=== PATIENT | male | born 1960 | race American Indian/Alaskan Native ===

== ENCOUNTER 2024-09-24 03:55 | Day surgery (SDC) | payer OTHER ==
[2024-09-24] MEDS ORDERED: Miconazole Nitrate 2% 85 GM PWD ONE (09:33)
== END 2024-09-24 23:31 | disposition home or self-care (01) ==
LOC: WOUND 03:55
DX: E11.621 Type 2 diabetes mellitus with foot ulcer (principal); L97.515 Non-pressure chronic ulcer of other part of right foot with muscle involvement without evidence of necrosis; L89.894 Pressure ulcer of other site, stage 4; E11.40 Type 2 diabetes mellitus with diabetic neuropathy, unspecified; I10 Essential (primary) hypertension
CPT/HCPCS: A9270; G0463

== ENCOUNTER 2024-10-05 02:29 | Day surgery (SDC) | payer OTHER | END 2024-10-05 23:22 | disposition home or self-care (01) | LOC: WOUND 02:29 | DX: E11.621 Type 2 diabetes mellitus with foot ulcer (principal); L97.513 Non-pressure chronic ulcer of other part of right foot with necrosis of muscle; L89.892 Pressure ulcer of other site, stage 2; L89.94 Pressure ulcer of unspecified site, stage 4; E11.40 Type 2 diabetes mellitus with diabetic neuropathy, unspecified | CPT/HCPCS: G0463 ==

== ENCOUNTER 2024-10-12 01:18 | Day surgery (SDC) | payer OTHER | END 2024-10-12 23:00 | disposition home or self-care (01) | LOC: WOUND 01:18 | DX: E11.621 Type 2 diabetes mellitus with foot ulcer (principal); L97.512 Non-pressure chronic ulcer of other part of right foot with fat layer exposed; L89.94 Pressure ulcer of unspecified site, stage 4; E11.40 Type 2 diabetes mellitus with diabetic neuropathy, unspecified ==

== ENCOUNTER 2024-10-14 03:02 | Day surgery (SDC) | payer OTHER | END 2024-10-14 23:00 | disposition home or self-care (01) | LOC: WOUND 03:02 | DX: E11.621 Type 2 diabetes mellitus with foot ulcer (principal); L97.515 Non-pressure chronic ulcer of other part of right foot with muscle involvement without evidence of necrosis; L89.894 Pressure ulcer of other site, stage 4; E11.40 Type 2 diabetes mellitus with diabetic neuropathy, unspecified ==

== ENCOUNTER 2024-10-21 03:35 | Day surgery (SDC) | payer OTHER ==
[2024-10-21] MEDS ORDERED: Lidocaine HCl 4% Cream 5 GM ONE (13:14)
== END 2024-10-21 23:00 | disposition home or self-care (01) ==
LOC: WOUND 03:35
DX: E11.621 Type 2 diabetes mellitus with foot ulcer (principal); L89.894 Pressure ulcer of other site, stage 4; E11.40 Type 2 diabetes mellitus with diabetic neuropathy, unspecified
CPT/HCPCS: A9270

== ENCOUNTER 2024-10-28 05:40 | Day surgery (SDC) | payer OTHER | END 2024-10-28 23:00 | disposition home or self-care (01) | LOC: WOUND 05:40 | DX: E11.621 Type 2 diabetes mellitus with foot ulcer (principal); L97.515 Non-pressure chronic ulcer of other part of right foot with muscle involvement without evidence of necrosis; L89.892 Pressure ulcer of other site, stage 2 ==

== ENCOUNTER 2024-11-02 04:44 | Day surgery (SDC) | payer OTHER | END 2024-11-04 23:00 | disposition home or self-care (01) | LOC: WOUND 04:44 | DX: E11.621 Type 2 diabetes mellitus with foot ulcer (principal); L97.512 Non-pressure chronic ulcer of other part of right foot with fat layer exposed; L89.94 Pressure ulcer of unspecified site, stage 4; E11.40 Type 2 diabetes mellitus with diabetic neuropathy, unspecified ==

== ENCOUNTER 2024-11-10 03:23 | Day surgery (SDC) | payer OTHER | END 2024-11-10 23:00 | disposition home or self-care (01) | LOC: WOUND 03:23 | DX: E11.621 Type 2 diabetes mellitus with foot ulcer (principal); L97.512 Non-pressure chronic ulcer of other part of right foot with fat layer exposed; L89.894 Pressure ulcer of other site, stage 4; E11.40 Type 2 diabetes mellitus with diabetic neuropathy, unspecified ==

== ENCOUNTER 2024-11-17 06:11 | Day surgery (SDC) | payer OTHER | END 2024-11-17 23:00 | disposition home or self-care (01) | LOC: WOUND 06:11 | DX: E11.621 Type 2 diabetes mellitus with foot ulcer (principal); L97.512 Non-pressure chronic ulcer of other part of right foot with fat layer exposed; E11.40 Type 2 diabetes mellitus with diabetic neuropathy, unspecified; L89.892 Pressure ulcer of other site, stage 2 ==

== ENCOUNTER 2024-11-24 08:09 | Day surgery (SDC) | payer OTHER | END 2024-11-24 23:00 | disposition home or self-care (01) | LOC: WOUND 08:09 | DX: E11.621 Type 2 diabetes mellitus with foot ulcer (principal); L97.512 Non-pressure chronic ulcer of other part of right foot with fat layer exposed; L89.894 Pressure ulcer of other site, stage 4; E11.40 Type 2 diabetes mellitus with diabetic neuropathy, unspecified ==

== ENCOUNTER 2024-12-04 03:28 | Day surgery (SDC) | payer OTHER | END 2024-12-06 23:00 | disposition home or self-care (01) | LOC: WOUND 03:28 | DX: E11.621 Type 2 diabetes mellitus with foot ulcer (principal); L97.512 Non-pressure chronic ulcer of other part of right foot with fat layer exposed; L89.892 Pressure ulcer of other site, stage 2; L89.94 Pressure ulcer of unspecified site, stage 4; E11.40 Type 2 diabetes mellitus with diabetic neuropathy, unspecified ==

== ENCOUNTER 2024-12-11 06:29 | Day surgery (SDC) | payer OTHER | END 2024-12-11 23:00 | disposition home or self-care (01) | LOC: WOUND 06:29 | DX: E11.621 Type 2 diabetes mellitus with foot ulcer (principal); L97.512 Non-pressure chronic ulcer of other part of right foot with fat layer exposed; L89.892 Pressure ulcer of other site, stage 2; L89.94 Pressure ulcer of unspecified site, stage 4; E11.40 Type 2 diabetes mellitus with diabetic neuropathy, unspecified ==

== ENCOUNTER 2024-12-18 03:59 | Day surgery (SDC) | payer OTHER | END 2024-12-18 23:00 | disposition home or self-care (01) | LOC: WOUND 03:59 | DX: E11.621 Type 2 diabetes mellitus with foot ulcer (principal); L97.519 Non-pressure chronic ulcer of other part of right foot with unspecified severity; L89.899 Pressure ulcer of other site, unspecified stage; E11.40 Type 2 diabetes mellitus with diabetic neuropathy, unspecified | CPT/HCPCS: G0463 ==

== ENCOUNTER 2024-12-31 02:32 | Day surgery (SDC) | payer OTHER ==
[2024-12-31] MEDS ORDERED: Lidocaine HCl 4% Cream 5 GM ONE (10:43)
== END 2024-12-31 23:00 | disposition home or self-care (01) ==
LOC: WOUND 02:32
DX: E11.621 Type 2 diabetes mellitus with foot ulcer (principal); L97.515 Non-pressure chronic ulcer of other part of right foot with muscle involvement without evidence of necrosis; L89.94 Pressure ulcer of unspecified site, stage 4; E11.40 Type 2 diabetes mellitus with diabetic neuropathy, unspecified
CPT/HCPCS: A9270; G0463

== ENCOUNTER 2025-01-07 00:49 | Day surgery (SDC) | payer OTHER ==
[2025-01-07] MEDS ORDERED: Lidocaine HCl 4% Cream 5 GM ONE ×2 (08:37→08:47)
== END 2025-01-07 23:00 | disposition home or self-care (01) ==
LOC: WOUND 00:49
DX: E11.621 Type 2 diabetes mellitus with foot ulcer (principal); L97.515 Non-pressure chronic ulcer of other part of right foot with muscle involvement without evidence of necrosis; E11.40 Type 2 diabetes mellitus with diabetic neuropathy, unspecified
CPT/HCPCS: A9270

== ENCOUNTER 2025-01-14 02:14 | Day surgery (SDC) | payer OTHER ==
[2025-01-14] MEDS ORDERED: Lidocaine HCl 4% Cream 5 GM ONE (08:56)
== END 2025-01-14 23:00 | disposition home or self-care (01) ==
LOC: WOUND 02:14
DX: E11.621 Type 2 diabetes mellitus with foot ulcer (principal); L97.513 Non-pressure chronic ulcer of other part of right foot with necrosis of muscle; L89.894 Pressure ulcer of other site, stage 4; E11.40 Type 2 diabetes mellitus with diabetic neuropathy, unspecified
CPT/HCPCS: A9270

== ENCOUNTER 2025-01-21 04:02 | Day surgery (SDC) | payer OTHER ==
[2025-01-21] MEDS ORDERED: Lidocaine HCl 4% Cream 5 GM ONE (10:02)
== END 2025-01-21 23:00 | disposition home or self-care (01) ==
LOC: WOUND 04:02
DX: E11.621 Type 2 diabetes mellitus with foot ulcer (principal); L97.513 Non-pressure chronic ulcer of other part of right foot with necrosis of muscle; L89.94 Pressure ulcer of unspecified site, stage 4; E11.40 Type 2 diabetes mellitus with diabetic neuropathy, unspecified
CPT/HCPCS: A9270

== ENCOUNTER 2025-02-03 04:31 | Day surgery (SDC) | payer OTHER ==
[2025-02-03] MEDS ORDERED: Lidocaine HCl 4% Cream 5 GM ONE (12:54)
== END 2025-02-03 23:00 | disposition home or self-care (01) ==
LOC: WOUND 04:31
DX: E11.621 Type 2 diabetes mellitus with foot ulcer (principal); L97.515 Non-pressure chronic ulcer of other part of right foot with muscle involvement without evidence of necrosis; E11.40 Type 2 diabetes mellitus with diabetic neuropathy, unspecified
CPT/HCPCS: A9270; G0463

== ENCOUNTER 2025-02-11 00:10 | Day surgery (SDC) | payer OTHER ==
[2025-02-11] MEDS ORDERED: Lidocaine HCl 4% Cream 5 GM ONE (10:04)
[2025-02-11] MEDS ORDERED: Silver Nitr/Potassium Nitrate 1 EA APPL ONE ×2 (10:34→10:35)
== END 2025-02-11 23:00 | disposition home or self-care (01) ==
LOC: WOUND 00:10
DX: E11.621 Type 2 diabetes mellitus with foot ulcer (principal); L97.512 Non-pressure chronic ulcer of other part of right foot with fat layer exposed; E11.40 Type 2 diabetes mellitus with diabetic neuropathy, unspecified
CPT/HCPCS: A9270

== ENCOUNTER 2025-02-25 01:47 | Day surgery (SDC) | payer OTHER | END 2025-02-25 23:00 | disposition home or self-care (01) | LOC: WOUND 01:47 | DX: E11.621 Type 2 diabetes mellitus with foot ulcer (principal); L97.815 Non-pressure chronic ulcer of other part of right lower leg with muscle involvement without evidence of necrosis; E11.40 Type 2 diabetes mellitus with diabetic neuropathy, unspecified | CPT/HCPCS: G0463 ==

== ENCOUNTER 2025-03-04 02:09 | Day surgery (SDC) | payer OTHER ==
[2025-03-04] MEDS ORDERED: Lidocaine HCl 4% Cream 5 GM ONE (10:29)
== END 2025-03-04 23:00 | disposition home or self-care (01) ==
LOC: WOUND 02:09
DX: E11.621 Type 2 diabetes mellitus with foot ulcer (principal); L97.515 Non-pressure chronic ulcer of other part of right foot with muscle involvement without evidence of necrosis; E11.40 Type 2 diabetes mellitus with diabetic neuropathy, unspecified
CPT/HCPCS: A9270

== ENCOUNTER 2025-03-11 01:39 | Day surgery (SDC) | payer OTHER ==
[2025-03-11] MEDS ORDERED: Lidocaine HCl 4% Cream 5 GM ONE (15:22)
== END 2025-03-11 23:00 | disposition home or self-care (01) ==
LOC: WOUND 01:39
DX: E11.621 Type 2 diabetes mellitus with foot ulcer (principal); L97.515 Non-pressure chronic ulcer of other part of right foot with muscle involvement without evidence of necrosis; L89.94 Pressure ulcer of unspecified site, stage 4; E11.40 Type 2 diabetes mellitus with diabetic neuropathy, unspecified
CPT/HCPCS: A9270

== ENCOUNTER 2025-03-18 01:19 | Day surgery (SDC) | payer OTHER ==
[2025-03-18] MEDS ORDERED: Lidocaine HCl 4% Cream 5 GM ONE (09:48)
== END 2025-03-18 23:00 | disposition home or self-care (01) ==
LOC: WOUND 01:19
DX: E11.621 Type 2 diabetes mellitus with foot ulcer (principal); L97.515 Non-pressure chronic ulcer of other part of right foot with muscle involvement without evidence of necrosis; L89.94 Pressure ulcer of unspecified site, stage 4; E11.40 Type 2 diabetes mellitus with diabetic neuropathy, unspecified
CPT/HCPCS: A9270

== ENCOUNTER 2025-04-15 04:47 | Day surgery (SDC) | payer OTHER ==
[2025-04-15] MEDS ORDERED: Lidocaine HCl 4% Cream 5 GM ONE (14:58)
[2025-04-15] MEDS ORDERED: Silver Nitr/Potassium Nitrate 1 EA APPL ONE (15:54)
== END 2025-04-15 23:48 | disposition home or self-care (01) ==
LOC: WOUND 04:47
DX: E11.621 Type 2 diabetes mellitus with foot ulcer (principal); L97.513 Non-pressure chronic ulcer of other part of right foot with necrosis of muscle; E11.40 Type 2 diabetes mellitus with diabetic neuropathy, unspecified
CPT/HCPCS: A9270

== ENCOUNTER 2025-04-22 00:45 | Day surgery (SDC) | payer OTHER ==
[2025-04-22] MEDS ORDERED: Lidocaine HCl 4% Cream 5 GM ONE (10:25)
== END 2025-04-22 23:00 | disposition home or self-care (01) ==
LOC: WOUND 00:45
DX: E11.621 Type 2 diabetes mellitus with foot ulcer (principal); L97.512 Non-pressure chronic ulcer of other part of right foot with fat layer exposed; E11.40 Type 2 diabetes mellitus with diabetic neuropathy, unspecified
CPT/HCPCS: A9270

== ENCOUNTER 2025-05-12 03:09 | Day surgery (SDC) | payer OTHER ==
[2025-05-12] MEDS ORDERED: Lidocaine HCl 4% Cream 5 GM ONE (13:06)
== END 2025-05-12 23:00 | disposition home or self-care (01) ==
LOC: WOUND 03:09
DX: E11.621 Type 2 diabetes mellitus with foot ulcer (principal); E11.40 Type 2 diabetes mellitus with diabetic neuropathy, unspecified; L89.894 Pressure ulcer of other site, stage 4
CPT/HCPCS: A9270

== ENCOUNTER 2025-05-20 01:37 | Day surgery (SDC) | payer OTHER | END 2025-05-20 23:00 | disposition home or self-care (01) | LOC: WOUND 01:37 | DX: E11.621 Type 2 diabetes mellitus with foot ulcer (principal); L97.515 Non-pressure chronic ulcer of other part of right foot with muscle involvement without evidence of necrosis; E11.40 Type 2 diabetes mellitus with diabetic neuropathy, unspecified ==

== ENCOUNTER 2025-05-27 02:14 | Day surgery (SDC) | payer OTHER | END 2025-05-27 23:00 | disposition home or self-care (01) | LOC: WOUND 02:14 | DX: E11.621 Type 2 diabetes mellitus with foot ulcer (principal); L97.511 Non-pressure chronic ulcer of other part of right foot limited to breakdown of skin; E11.40 Type 2 diabetes mellitus with diabetic neuropathy, unspecified ==

== ENCOUNTER 2025-06-03 03:25 | Day surgery (SDC) | payer OTHER | END 2025-06-03 23:00 | disposition home or self-care (01) | LOC: WOUND 03:25 | DX: E11.621 Type 2 diabetes mellitus with foot ulcer (principal); L97.515 Non-pressure chronic ulcer of other part of right foot with muscle involvement without evidence of necrosis; E11.40 Type 2 diabetes mellitus with diabetic neuropathy, unspecified | CPT/HCPCS: A9270 ==

== ENCOUNTER 2025-06-10 03:45 | Day surgery (SDC) | payer OTHER ==
[2025-06-10] MEDS ORDERED: Lidocaine HCl 4% Cream 5 GM ONE (13:07)
== END 2025-06-10 23:00 | disposition home or self-care (01) ==
LOC: WOUND 03:45
DX: E11.621 Type 2 diabetes mellitus with foot ulcer (principal); L97.515 Non-pressure chronic ulcer of other part of right foot with muscle involvement without evidence of necrosis; E11.40 Type 2 diabetes mellitus with diabetic neuropathy, unspecified; E11.65 Type 2 diabetes mellitus with hyperglycemia
CPT/HCPCS: A9270

== ENCOUNTER 2025-06-17 01:47 | Day surgery (SDC) | payer OTHER ==
[2025-06-17] MEDS ORDERED: Lidocaine HCl 4% Cream 5 GM ONE (09:45)
== END 2025-06-17 23:00 | disposition home or self-care (01) ==
LOC: WOUND 01:47
DX: E11.621 Type 2 diabetes mellitus with foot ulcer (principal); L97.519 Non-pressure chronic ulcer of other part of right foot with unspecified severity; E11.40 Type 2 diabetes mellitus with diabetic neuropathy, unspecified
CPT/HCPCS: A9270